=== PATIENT | male | born 1995 | race Hispanic/Latino ===

== ENCOUNTER 2024-08-27 13:21 | Emergency (ER) | payer SELFPAY ==
[~2024-08-27] VITALS: Ht 172.7 cm; Wt 99.8 kg
[2024-08-27 13:34] VITALS: PULSE 83; RESP 16
[2024-08-27 13:53] VITALS: TEMP 98.5
[2024-08-27] MEDS: KETOROLAC TROMETHAMINE 30 MG/ML VIAL IM STA (13:59)
[2024-08-27] MEDS: GUAIFENESIN 600MG/DEXTROMETHORPHAN 30MG TABSR PO STA (13:59)
[2024-08-27] MEDS ORDERED: XOFLUZA80 MG PO (14:00)
[2024-08-27 14:18] LABS: CORONAVIRUS COVID-19 AG NEGATIVE (NEGATIVE); INFLUENZA B AG NEGATIVE (NEGATIVE)
[2024-08-27 14:20] LABS: INFLUENZA A AG POSITIVE (NEGATIVE)
[2024-08-27] MEDS ORDERED: TAMIFLU75 MG PO (16:02)
[2024-08-27 16:18] VITALS: BP 121/68; PULSE 73; RESP 16; O2SAT 99
== END 2024-08-27 15:15 | disposition home or self-care (01) ==
LOC: ER 13:31
DX: R68.83 Chills (without fever) (principal); J10.1 Influenza due to other identified influenza virus with other respiratory manifestations; R51.9 Headache, unspecified; J45.909 Unspecified asthma, uncomplicated; Z11.52 Encounter for screening for COVID-19
CPT/HCPCS: 71045; 83518; 87070; 87428; 99283; J1885